=== PATIENT | female | born 1985 | race Caucasian/White ===

== ENCOUNTER 2016-07-13 07:20 | Emergency (ER) | payer SELFPAY ==
--- NOTE | ~2016-07-13 | ER ---
PATIENT'S NAME: JARVIS PAUL [facility] AGE: 30 Y [address] ROOM: [place] [address] LOCATION: [facility] ADMIT DATE: 07/13/2016 ER/Outpatient Report DISCHARGE DATE: 07/13/2016 FAMILY PHYSICIAN: Ernesto Henley MD ATTENDING PHYSICIAN: Kishore Malone CHIEF COMPLAINT: Feeling hot, right-sided neck pain, shortness of breath, and congestion. HISTORY OF PRESENT ILLNESS: The patient has had above symptoms for 3-5 days, but they have been getting worse. She stated initially she never had this before, but on repeat questioning, she has had this exact presentation before. She states that she was recently discharged from [facility] a few days ago where she was admitted for some stabilization. She states she has otherwise been doing well. She has taken Tylenol and ibuprofen this morning with no significant improvement. She also asked for a work note. PAST MEDICAL HISTORY: Documented on the record and reviewed by me. SOCIAL HISTORY: Documented on the record and reviewed by me. MEDICATIONS: Documented on the record and reviewed by me. ALLERGIES: DOCUMENTED ON THE RECORD AND REVIEWED BY ME. REVIEW OF SYSTEMS: All systems reviewed and negative except as noted in the HPI. PHYSICAL EXAMINATION: VITAL SIGNS: Blood pressure 137/80, pulse is 69, respiratory rate is 16, temperature 99.4, SpO2 is 97% on room air. Pain is rated 7/10. GENERAL: An age appropriate female, obviously does not feel well, sitting upright in the exam chair, in no obvious distress or pain. HEENT: Normocephalic, atraumatic. The eyes are PERRL. Sclerae noninjected conjunctivae are pink. The nasal mucosa is edematous with purulent discharge. Sinuses are mildly tender. The oropharynx is erythematous with no exudates. No uvula deviation. Tonsils are symmetric. Neck is notable for tenderness to palpation along the right lateral aspects near the skull base and inferiorly. The TMs are bulging bilateral with no purulence or air-fluid levels. No erythema appreciated bilateral. There is no tenderness at the mastoid process PATIENT'S NAME: JARVIS PAUL [facility] AGE: 30 Y [address] ROOM: [place] [address] LOCATION: [facility] ADMIT DATE: 07/13/2016 ER/Outpatient Report DISCHARGE DATE: 07/13/2016 FAMILY PHYSICIAN: Ernesto Henley MD ATTENDING PHYSICIAN: Kishore Malone bilateral. BACK: Nontender to palpation. CHEST: Even and unlabored respirations. LUNGS: Clear to auscultation bilateral with no rhonchi, wheezes, or rales. HEART: Regular rate and rhythm. ABDOMEN: Obese, but nontender. EXTREMITIES: Warm and well perfused. SKIN: Warm, dry, and intact without rashes. LABS AND X-RAYS: Chest x-ray, negative and within normal limits per my read. Labs; procalcitonin below threshold. Influenza A and B are negative. Rapid strep is negative. CMS is unremarkable. CRP is 2.5. WBCs are 11.3, hemoglobin 13.5, platelets of 320. IMPRESSION: Likely viral syndrome versus deep neck space infection. EMERGENCY DEPARTMENT COURSE: The patient was evaluated as above. Her presentation is most concerning for viral upper respiratory syndrome; however, given the amount of pain and tenderness that she is having on the side of her neck, I was concerned about a possible deep space abscess with a CRP that is elevated and mildly elevated white count. There are no external signs of same and there is no deviation of the trachea, no fluctuance, and no overlying erythema. There is also no tonsillar prominence. I do not think the patient has a peritonsillar abscess. I recommended CT of the neck with contrast and the patient declined. She stated she wanted to go home and sleep and have a work note. I explained I was concerned about the infection and she further declined stating she would return if worse. I think that it is likely safe; however, there is a small element of concern. All questions were answered. The patient was given a work note and discharged in good condition to follow up with her primary care providers as needed. Return immediately if worse. Ordi-kyw-lxavzxy anti- inflammatories as needed. MD CARLY TOBIN/benigno /[id number] d: 07/13/16 1257 t: 07/27/16 0804, OUTPATIENT REPORT
[~2016-07-13 07:20] MED LIST: ADVIL200 MG; CYMBALTA20 MG PO; DESYREL100 MG PO; EFFEXOR XR150 MG PO; IBUPROFEN800 MG PO; KEFLEX500 MG PO; MULTIVITAMINS1 EAC1 PO; NEURONTIN100 MG PO; NICOTINE PATCH1 EAC1 TOP; SPRINTEC 28 DA1 EACH PO; STRATTERA18 MG PO; STRATTERA40 MG PO; TRAMADOL HCL50 MG; ULTRAM50 MG PO; VITAMIN D-32000 UNI1 PO; WELLBUTRIN XL150 M1 PO; ZOLOFT100 MG PO; ZOLOFT50 MG; ZYPREXA10 MG PO; ZYPREXA2.5 MG PO; [UNRECOGNIZED DRUG - MIXTURE] PO
[2016-07-13 08:03] LABS: BASOPHIL # 0.1 K/uL (0.0-0.2); BASOPHIL % 0.5 %; EOSINOPHIL # 0.2 K/uL (0.0-0.5); EOSINOPHIL % 1.3 %; HEMATOCRIT 39.8 % (33.0-46.0); HEMOGLOBIN 13.5 g/dL (11.0-15.0); IMMATURE GRANULOCYTE % 0.3 %; LYMPHOCYTE # 1.3 K/uL (0.8-4.0); LYMPHOCYTE % 11.4 %; MCH 30.6 pg (27.0-34.0); MCHC 33.9 gm/dL (32.0-36.5); MCV 90.2 fl (83.0-98.0); MONOCYTE # 0.8 K/uL (0.0-1.0); MONOCYTE % 6.9 %; MPV 9.3 fl (9.4-12.4); NEUTROPHIL % 79.6 %; NRBC % 0 /100WBC (0-0.00); PLATELET COUNT 320 K/uL (150-450); RBC 4.41 M/uL (3.50-5.50); RDW-CV 13.2 % (11.9-14.6); WBC 11.3 K/uL (4.0-11.0)
[2016-07-13 08:30] LABS: ALBUMIN 3.7 gm/dL (3.5-5.0); ALK PHOS 88 IU/L (33-138); ALT 26 IU/L (12-78); ANION GAP 12.1 (10.0-19.0); AST 17 IU/L (10-40); BLOOD UREA NITROGEN 11 mg/dL (6-24); CALCIUM 8.4 mg/dL (8.5-10.5); CHLORIDE 106 mMol/L (96-110); CO2 26 mMol/L (22-32); CREATININE 0.6 mg/dL (0.5-1.1); ESTIMATED GFR (MDRD EQUATION) > 60; POTASSIUM 4.1 mMol/L (3.7-5.1); SODIUM 140 mMol/L (135-145); TOTAL PROTEIN 7.3 g/dL (6.0-8.4)
[2016-07-13 08:31] LABS: TOTAL BILIRUBIN 0.3 mg/dL (0.0-1.5)
[2016-08-12] MEDS ORDERED: WELLBUTRIN XL150 M1 PO (09:57)
[2016-08-12] MEDS ORDERED: NICODERM / HABIT7 MG TOP (10:04)
[2016-11-26] MEDS ORDERED: ZOLOFT50 MG PO (10:39)
[2016-12-20] MEDS ORDERED: WELLBUTRIN XL150 M1 PO (09:49)
[2016-12-20] MEDS ORDERED: NICOTINE PATCH1 EAC1 TOP (09:50)
[2016-12-20] MEDS ORDERED: RISPERDAL0.25 MG PO (09:51)
[2016-12-20] MEDS ORDERED: RISPERDAL0.5 MG PO (09:53)
== END 2016-07-13 08:45 | disposition disaster alternative care site (69) ==
LOC: GMED 07:20
PROVIDERS: Emergency Medicine
DX: M54.2 Cervicalgia (principal); R06.02 Shortness of breath; Z79.899 Other long term (current) drug therapy

== ENCOUNTER 2016-08-05 06:32 | Emergency (ER) | payer SELFPAY ==
--- NOTE | ~2016-08-05 | ER ---
PATIENT'S NAME: JARVIS PAUL [facility] AGE: 30 Y [address] ROOM: [place] [address] LOCATION: [facility] ADMIT DATE: 08/05/2016 ER/Outpatient Report DISCHARGE DATE: 08/05/2016 FAMILY PHYSICIAN: Ernesto Henley MD ATTENDING PHYSICIAN: Kishore Malone CHIEF COMPLAINT: Amphetamine use and suicidal ideation. HISTORY OF PRESENT ILLNESS: The patient arrives by ambulance. She has been bingeing on methamphetamines for the last several days. She also reports taking oxycodone or hydrocodone. She denies any other drug use. She is without other complaints other than general malaise. She is otherwise doing okay. She has no other specific complaints, but states she has not eaten in several days. PAST MEDICAL HISTORY: Documented on the record and reviewed by me. SOCIAL HISTORY: Documented on the record and reviewed by me. MEDICATIONS: Documented on the record and reviewed by me. ALLERGIES: DOCUMENTED ON THE RECORD AND REVIEWED BY ME. REVIEW OF SYSTEMS: All systems reviewed and negative except as noted in the HPI. PHYSICAL EXAMINATION: VITAL SIGNS: On arrival; blood pressure 195/78, pulse 114, respiratory rate is 28, temperature 98.5, and SpO2 is 98% on room air. No outward signs of pain. GENERAL: Age-appropriate female, clearly intoxicated, lying on exam table with no acute distress, no obvious pain. NEUROLOGIC: The patient is easily arousable. She is minimally conversant and somewhat aggressive with her language, but not physically aggressive. She does not answer questions appropriately, but she does have clear speech. She is able to follow commands in all extremities. No obvious abnormalities otherwise. HEENT: Normocephalic and atraumatic. Eyes are PERRL. Oropharynx is clear. NECK: Supple. Trachea is midline. CHEST: Heart is tachycardic with no murmurs. Lungs are clear to auscultation PATIENT'S NAME: JARVIS PAUL [facility] AGE: 30 Y [address] ROOM: [place], [place] [address] LOCATION: [facility] ADMIT DATE: 08/05/2016 ER/Outpatient Report DISCHARGE DATE: 08/05/2016 FAMILY PHYSICIAN: Ernesto Henley MD ATTENDING PHYSICIAN: Kira,Kishore bilaterally with no rhonchi, wheezes, or rales. ABDOMEN: Soft, nontender, and nondistended. No rebound or guarding. BACK: Nontender to palpation throughout. No CVA tenderness. EXTREMITIES: Warm and well perfused. SKIN: Warm, dry, and intact with some slight erythema diffusely. No clear rash. LABS AND X-RAYS: No imaging was obtained. No outward signs of trauma. EKG showed sinus tachycardia, significant artifact, no other obvious abnormalities otherwise. CBC is unremarkable. CMS is notable for a potassium of 2.8, otherwise grossly unremarkable. GFR is greater than 60. Alcohol, acetaminophen, salicylate, and are all below detectable threshold. Urinalysis consistent with amphetamine and cannabinoid use. IMPRESSION: 1. Methamphetamine use. 2. Suicidal ideation. 3. Hypokalemia. EMERGENCY DEPARTMENT COURSE: The patient was given 2 L of NS with 40 mEq of oral potassium. She continued to improve. Tachycardia improved to the high 90s. She did have some bigeminy, which improved markedly throughout her stay. She stated that she was having thoughts of harming herself and would definitely harm herself if she left the ER to a not safe environment. [facility] were contacted to come and evaluate her and she will be taken and accepted to their facility, Dr. Millan for further evaluation and treatment at this time. All questions were answered and the patient was taken by ambulance to their facility after being discharged from here for further evaluation and treatment of this suicidal ideation in the setting of substance abuse. MD CARLY TOBIN/benigno /[id number] d: 08/05/162299 t: 08/16/16626, OUTPATIENT REPORT
[2016-08-05 07:55] LABS: BASOPHIL # 0.1 K/uL (0.0-0.2); BASOPHIL % 0.7 %; EOSINOPHIL # 0.1 K/uL (0.0-0.5); EOSINOPHIL % 1.5 %; HEMATOCRIT 42.1 % (33.0-46.0); HEMOGLOBIN 14.2 g/dL (11.0-15.0); IMMATURE GRANULOCYTE % 0.4 %; MCH 30.8 pg (27.0-34.0); MCHC 33.7 gm/dL (32.0-36.5); MCV 91.3 fl (83.0-98.0); MONOCYTE # 0.6 K/uL (0.0-1.0); MONOCYTE % 6.7 %; MPV 9.1 fl (9.4-12.4); NEUTROPHIL # (ANC) 5.6 K/uL (1.8-7.8); NEUTROPHIL % 66.7 %; NRBC % 0 /100WBC (0-0.00); PLATELET COUNT 403 K/uL (150-450); RBC 4.61 M/uL (3.50-5.50); RDW-CV 13.3 % (11.9-14.6); WBC 8.4 K/uL (4.0-11.0)
[2016-08-05 08:16] LABS: ALBUMIN 3.5 gm/dL (3.5-5.0); ALK PHOS 81 IU/L (33-138); ALT 21 IU/L (12-78); AST 16 IU/L (10-40); BLOOD UREA NITROGEN 10 mg/dL (6-24); CHLORIDE 105 mMol/L (96-110); CO2 24 mMol/L (22-32); CREATININE 0.6 mg/dL (0.5-1.1); ESTIMATED GFR (MDRD EQUATION) > 60; SODIUM 139 mMol/L (135-145); TOTAL PROTEIN 7.5 g/dL (6.0-8.4)
[2016-08-05 08:26] LABS: ANION GAP 12.8 (10.0-19.0); POTASSIUM 2.8 mMol/L (3.7-5.1); TOTAL BILIRUBIN 0.5 mg/dL (0.0-1.5)
[2016-08-05 09:11] LABS: BARBITURATE NEGATIVE (NEGATIVE); COCAINE NEGATIVE (NEGATIVE); OPIATES NEGATIVE (NEGATIVE)
[2016-08-05 09:12] LABS: AMPHETAMINE POSITIVE (NEGATIVE)
[2016-08-05] MEDS ORDERED: POTASSIUM CHLO10 ME1 PO (13:32)
[2016-08-12] MEDS ORDERED: WELLBUTRIN XL150 M1 PO (09:57)
[2016-08-12] MEDS ORDERED: NICODERM / HABIT7 MG TOP (10:04)
[2016-11-26] MEDS ORDERED: ZOLOFT50 MG PO (10:39)
[2016-12-20] MEDS ORDERED: WELLBUTRIN XL150 M1 PO (09:49)
[2016-12-20] MEDS ORDERED: NICOTINE PATCH1 EAC1 TOP (09:50)
[2016-12-20] MEDS ORDERED: RISPERDAL0.25 MG PO (09:51)
[2016-12-20] MEDS ORDERED: RISPERDAL0.5 MG PO (09:53)
== END 2016-08-05 11:39 | disposition disaster alternative care site (69) ==
LOC: GMED 06:32
PROVIDERS: Emergency Medicine
DX: F15.90 Other stimulant use, unspecified, uncomplicated (principal); R45.851 Suicidal ideations; E87.6 Hypokalemia
CPT/HCPCS: G0480; J7030

== ENCOUNTER 2016-08-17 02:38 | Emergency (ER) | payer SELFPAY ==
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
[~2016-08-17 02:38] MED LIST changes: +NICODERM / HABIT7 MG TOP; +POTASSIUM CHLO10 ME1 PO
[2016-08-17 03:35] LABS: BASOPHIL # 0.1 K/uL (0.0-0.2); BASOPHIL % 0.5 %; EOSINOPHIL # 0.1 K/uL (0.0-0.5); EOSINOPHIL % 1.4 %; HEMATOCRIT 41.9 % (33.0-46.0); HEMOGLOBIN 13.8 g/dL (11.0-15.0); IMMATURE GRANULOCYTE % 0.2 %; LYMPHOCYTE # 2.5 K/uL (0.8-4.0); MCH 30.3 pg (27.0-34.0); MCHC 32.9 gm/dL (32.0-36.5); MCV 92.1 fl (83.0-98.0); MONOCYTE # 0.6 K/uL (0.0-1.0); MONOCYTE % 6.6 %; MPV 9.4 fl (9.4-12.4); NEUTROPHIL # (ANC) 6.2 K/uL (1.8-7.8); NEUTROPHIL % 65.3 %; NRBC % 0 /100WBC (0-0.00); PLATELET COUNT 408 K/uL (150-450); RBC 4.55 M/uL (3.50-5.50); RDW-CV 12.8 % (11.9-14.6); WBC 9.5 K/uL (4.0-11.0)
[2016-08-17 03:42] LABS: BLOOD URINE 50 /UL (NEGATIVE); COLOR URINE YELLOW (YELLOW); GLUCOSE URINE NEGATIVE (NEGATIVE); KETONE URINE 15 mg/dL (NEGATIVE); LEUKOCYTES URINE 100 /UL (NEGATIVE); NITRITE URINE NEGATIVE (NEGATIVE); PROTEIN URINE 30 mg/dL (NEGATIVE); TURBIDITY URINE 1+ (CLEAR); UROBILINOGEN URINE 1 mg/dL (NORMAL)
[2016-08-17 03:46] LABS: ALBUMIN 3.8 gm/dL (3.5-5.0); ALK PHOS 76 IU/L (33-138); ALT 20 IU/L (12-78); ANION GAP 15.5 (10.0-19.0); AST 17 IU/L (10-40); BLOOD UREA NITROGEN 13 mg/dL (6-24); CALCIUM 8.3 mg/dL (8.5-10.5); CHLORIDE 105 mMol/L (96-110); CO2 24 mMol/L (22-32); CREATININE 0.8 mg/dL (0.5-1.1); ESTIMATED GFR (MDRD EQUATION) > 60; POTASSIUM 3.5 mMol/L (3.7-5.1); SODIUM 141 mMol/L (135-145); TOTAL BILIRUBIN 0.4 mg/dL (0.0-1.5); TOTAL PROTEIN 7.6 g/dL (6.0-8.4)
[2016-08-17 03:54] LABS: INR - (THERAPEUTIC) 0.92 (0.92-1.07); PROTIME 9.7 SECONDS (9.8-11.4); PTT 26 SECONDS (25-32)
[2016-08-17 03:55] LABS: AMORPHOUS URINE 2+ (NEGATIVE); BACTERIA URINE RARE (NEGATIVE)
[2016-08-17 03:56] LABS: CPK 130 IU/L (21-215)
[2016-08-17 04:05] LABS: BARBITURATE NEGATIVE (NEGATIVE); COCAINE NEGATIVE (NEGATIVE); OPIATES NEGATIVE (NEGATIVE)
[2016-08-17 04:07] LABS: AMPHETAMINE POSITIVE (NEGATIVE)
[2016-11-26] MEDS ORDERED: ZOLOFT50 MG PO (10:39)
[2016-12-20] MEDS ORDERED: WELLBUTRIN XL150 M1 PO (09:49)
[2016-12-20] MEDS ORDERED: NICOTINE PATCH1 EAC1 TOP (09:50)
[2016-12-20] MEDS ORDERED: RISPERDAL0.25 MG PO (09:51)
[2016-12-20] MEDS ORDERED: RISPERDAL0.5 MG PO (09:53)
== END 2016-08-17 04:32 | disposition disaster alternative care site (69) ==
LOC: GMED 02:38
PROVIDERS: Emergency Medicine
DX: F15.10 Other stimulant abuse, uncomplicated (principal); Z04.41 Encounter for examination and observation following alleged adult rape; R45.851 Suicidal ideations; F19.10 Other psychoactive substance abuse, uncomplicated; M54.9 Dorsalgia, unspecified; M54.2 Cervicalgia; F17.210 Nicotine dependence, cigarettes, uncomplicated; Z90.49 Acquired absence of other specified parts of digestive tract
CPT/HCPCS: G0480

== ENCOUNTER 2016-11-21 17:52 | Inpatient (IN) | payer SELFPAY ==
[~2016-11-21] VITALS: Ht 162.6 cm; Wt 124.5 kg
--- NOTE | ~2016-11-21 | DS ---
PATIENT'S NAME: JARVIS PAUL [facility] AGE: 31 Y [address] ROOM: [id number] [place], [place] [address] LOCATION: [facility] ADMIT DATE: 11/21/2016 Discharge Summary DISCHARGE DATE: 11/23/2016 FAMILY PHYSICIAN: Physician, Unknown ATTENDING PHYSICIAN: Pedro Canales FINAL DIAGNOSES: 1. Polysubstance overdose. 2. Major depression with suicidal ideation. 3. Morbid obesity. 4. Allergic rhinitis. 5. Tobaccoism. CONSULTATIONS: None. HOSPITAL COURSE: Please see details of admission H and P by Dr. Canales. Briefly, the patient was admitted with medication overdose. She had taken gabapentin, smoked marijuana, snorted meth, and took OxyContin today. She initially presented to [facility], but then was transferred to [facility] for medical clearance. After evaluating the patient, it was felt that the patient should be admitted for treatment as she could have hepatic implications of her overdose medication. Dr. Canales did call [facility] and outlined criteria for observation and treatment. Serial EKGs were monitored for QRS prolongation. She was placed on suicide precautions. Lovenox was utilized for DVT prophylaxis. The patient did actually get Narcan twice for her level of consciousness. I did do a head CT, which was negative. Serum confirmed the patient was not . Upon evaluation on the , she was quite congested. CT scan did show evidence of sinusitis. Otherwise, the patient was angry and was not very conversational. She did not want to get out of bed. Later in the afternoon, she was quite sleepy. Laboratory studies continued to show decline of her liver functions. On the , she was awake in bed and felt suitable to transfer to [facility] for further evaluation and treatment. DIAGNOSTIC STUDIES: CT of the head without contrast shows no acute intracranial pathology. No skull fractures. She does have mucosal thickening in the right maxillary sinus reflecting sinusitis. Ultrasound of the abdomen shows mild prominence of common bile duct with no intraductal filling defects, surgically absent gallbladder, question of nonobstructing right renal stone, and borderline enlarged spleen up to 13 cm. LABORATORY DATA: Lactate on the was 1.1. On admission, sodium was 140, potassium of 3.3, chloride 106, bicarb 27, glucose 115, creatinine 0.6, BUN 8, AST was 222, ALT was 154. Alcohol was negative, acetaminophen was negative, and salicylate level was negative. Quantitative hCG was less than 1. Prior PATIENT'S NAME: JARVIS PAUL [facility] AGE: 31 Y [address] ROOM: [id number] [place], [place] [address] LOCATION: [facility] ADMIT DATE: 11/21/2016 Discharge Summary DISCHARGE DATE: 11/23/2016 FAMILY PHYSICIAN: Physician, Unknown ATTENDING PHYSICIAN: Pedro Canales to discharge, sodium was 141, potassium 3.8, chloride 110, bicarb 24, glucose 90, BUN 8, creatinine 0.5, AST 34, ALT 96. Urine drug screen was positive for amphetamines, benzodiazepine, opiates, and THC. DISCHARGE INSTRUCTIONS: The patient is transferred to [facility]. Diet is as tolerated. Activity is as tolerated. DISCHARGE MEDICATIONS: Include: 1. Flonase 2 sprays to each nostril at bedtime. 2. Mucinex 1200 mg twice daily. 3. Protonix 40 mg daily. 4. [place] nasal spray, one spray to each nostril as needed. 5. Trazodone 100 mg at bedtime. We do appreciate participating in this patient's care and thank you very much for the ability to serve her while hospitalized at [facility]. Time spent coordinating details of discharge was less than 30 minutes which was spent coordinating with care management, completion of medication reconciliation, and education to the patient and family on the above-mentioned diagnoses. OMAYRA HOANG FOR NIMA MEDRANO MD BRISA/modl /[id number] d: 11/24/16 0113 t: 12/08/16 1105, DISCHARGE SUMMARY
--- NOTE | ~2016-11-21 | HP ---
PATIENT'S NAME: JARVIS PAUL [facility] AGE: 31 Y [address] ROOM: [address] [address] LOCATION: GPCU ADMIT DATE: 11/21/2016 History & Physical DISCHARGE DATE: FAMILY PHYSICIAN: PHYSICIAN, UNKNOWN ATTENDING PHYSICIAN: LYNN JORGE DATE OF SERVICE: CHIEF COMPLAINT: Suicide attempt with multiple drug overdose. HISTORY OF PRESENT ILLNESS: This is a 31-year-old female with a longstanding history of depression and polysubstance abuse, who today ingested unknown amount of multiple medication including gabapentin, Wellbutrin, Percocet, oxycodone, tramadol, Aleve, marijuana, and also snorted methamphetamine. She did this in attempt to kill herself. She would not tell me what time she ingested those medications but she told me it was sometime in early afternoon. She did mention that she probably took a 16 tablets of gabapentin of 100 mg, but she does not know the dosing or how many tablets she took of the other medications. The patient went voluntarily to [facility] for suicide attempt and in return the patient was referred here for medical care first. Her only complaint right now is the right upper quadrant abdominal pain which is mild about 2/10 intensity and also nausea and vomiting. She states she vomited about two or three times today in early afternoon after she took all those medications. She denies any other symptoms. In the emergency room, I already contacted the Poison Control and the plan will be to admit the patient. Check a Tylenol, aspirin, and liver function tests right now, which is 4 hours after she got here in the ED and then do one more time in 12 hours. If the ALT is more than 200, we will with start her N-acetylcysteine protocol. Further plan refer to the assessment and plan for details. REVIEW OF SYSTEMS: As mentioned in history of present illness. All other systems were reviewed and were negative except those mentioned in history of present illness. PAST MEDICAL HISTORY: 1. Chronic lower back pain. 2. Polysubstance abuse. 3. Depression. 4. Fibromyalgia. ALLERGIES: NONE. PATIENT'S NAME: JARVIS PAUL [facility] AGE: 31 Y [address] ROOM: [address] [address] LOCATION: GPCU ADMIT DATE: 11/21/2016 History & Physical DISCHARGE DATE: FAMILY PHYSICIAN: PHYSICIAN, UNKNOWN ATTENDING PHYSICIAN: LYNN JORGE LANE MEDICATIONS: Currently has been reconciled. SOCIAL HISTORY: The patient smokes about 1 pack per day since she was 19 years old. Denies any alcohol and admits to using snorting methamphetamine and smoke marijuana on and off. FAMILY HISTORY: The patient does not remember anything about her parents. PAST SURGICAL HISTORY: Cholecystectomy and twice in the past. PHYSICAL EXAMINATION: VITAL SIGNS: At time of my evaluation, temperature 99, respiration 20, heart rate 122, blood pressure 138/86, and saturation 94% on room air. GENERAL APPEARANCE: The patient is alert and awake and oriented x3, in no acute distress. HEENT: Pupils equally round and reactive to light. Extraocular muscles intact. Anicteric sclerae. Nasal turbinates are normal bilaterally. NECK: No JVD. CARDIOVASCULAR: Regular rate and rhythm. Normal S1, S2. No murmur. No rubs. No gallops. RESPIRATORY: Clear. No rales. No rhonchi. No wheezing. No crackles. ABDOMEN: Obese, soft, mildly tender to palpation in the right upper quadrant, no abdominal rigidity. No mass. Bowel sounds present. No ascites. EXTREMITIES: No edema in upper or lower extremities. SKIN: No ulcer. No rash. No cyanosis. NEUROLOGICAL: Grossly nonfocal. LABORATORY DATA: White blood cell 7.7, hemoglobin 12.1, hematocrit 36.3, MCV 92.4, platelets 368. Glucose 115, BUN 8, creatinine 0.6, sodium 140, potassium 3.3, chloride 106, CO2 of 27, calcium 8.2, total protein 6.9, albumin 3.4, AST 222, ALT 154, alkaline phosphatase 137, total bilirubin 0.6, anion gap 10.3. GFR more than 90. Alcohol level is nontoxic. Aspirin and Tylenol level nontoxic. Urine drug screen positive for amphetamine, opiates, marijuana, and benzodiazepine. Urinalysis pending. IMAGING STUDIES: EKG on admission shows sinus tachycardia heart rate of 113, NJ of 172, QRS of 85, QTc of 395 milliseconds. No acute ischemic findings. PATIENT'S NAME: JARVIS PAUL [facility] AGE: 31 Y [address] ROOM: [id number] [place], [place] [address] [facility] ADMIT DATE: 11/21/2016 History & Physical DISCHARGE DATE: FAMILY PHYSICIAN: PHYSICIAN, UNKNOWN ATTENDING PHYSICIAN: LYNN JORGE ASSESSMENT AND PLAN: 1. Regarding her suicidal attempt with a polysubstance overdose. Suicidal precaution. One-in-one sitter in the room at all times. Psychiatry consult in the morning. I already spoke to the Poison Control, the plan will be regarding her transaminitis. There is a possibility she also ingested Tylenol just that she has not been truthful. Therefore, we will be checking liver function tests right now and if the ALT is more than 200, Poison Control recommend starting N-acetylcysteine for the Tylenol overdose. In addition, I will be checking another liver function tests and Tylenol and aspirin levels as well in 12 hours and again follow up with ALT, if it is more than 200, I will require N-acetylcysteine protocol. This is for the concern of the Tylenol intoxication. 2. Regarding her Wellbutrin overdose, we will be checking EKG to monitor QRS to make sure it is less than 120. The initial one is fine. I will be checking again at 1 a.m., 4 a.m., and 8 a.m. At the same time, the patient will be on IV fluids for hydration with normal saline. 3. Regarding her gabapentin, we will be conservative with supportive care with IV fluids. 4. Regarding her opioid overdose, watch her closely. I will be putting ET CO2 monitoring and also IV fluids for hydration. If she becomes drowsy or decrease in respiratory rate, we will be using Narcan. 5. Regarding her methamphetamine overdose, continue with telemetry monitoring and is on supportive care. 6. Regarding her Aleve, I give her Protonix. 7. In addition, regarding her right upper quadrant abdominal pain, nausea, and vomiting, we will give IV Zofran for nausea and get a complete abdominal ultrasound in the morning to look at the liver morphology. Further plan will depend on clinical course. 8. Regarding her hypokalemia: Replace with p.o. potassium chloride. 9. Regarding her depression: For now of course, we will hold all the home medication and also consult Psychiatry in the morning. 10. She is a full code. Time spent in care on the day of admission 50 minutes where 30 minutes was spent on counseling and also which includes going over the plan of care with the patient and addressing all her questions to her satisfaction. This time also includes a physical examination and also by calling the Poison Control for the plan of care. The remainder of the time was spent on interview and also on chart review. Further plan will depend on clinical course. LYNN JORGE MD CC/mónical PATIENT'S NAME: JARVIS PAUL [facility] AGE: 31 Y [address] ROOM: [place] [address] [facility] ADMIT DATE: 11/21/2016 History & Physical DISCHARGE DATE: FAMILY PHYSICIAN: PHYSICIAN, UNKNOWN ATTENDING PHYSICIAN: LYNN JORGE /[id number] D: [id number] T: HISTORY & PHYSICAL
--- NOTE | ~2016-11-21 | ER ---
PATIENT'S NAME: JARVIS PAUL [facility] AGE: 31 Y [address] ROOM: [address] [address] LOCATION: GPCU ADMIT DATE: 11/21/2016 ER/Outpatient Report DISCHARGE DATE: FAMILY PHYSICIAN: PHYSICIAN, UNKNOWN ATTENDING PHYSICIAN: LYNN JORGE Time of Arrival: 1752 hours. Time of Exam: 1752 hours. CHIEF COMPLAINT: Overdose. HISTORY OF PRESENT ILLNESS: The patient presents to the ER per EMS and [place] [employer]. The patient was picked up at [facility]. landcare officer reports that the patient took sixteen 100 mg gabapentin tabs. Has smoked marijuana shot up with meth and took OxyContin today. The patient states she just wants it all to end, but she is uncooperative and refuses to answer other questions. ALLERGIES: SHE HAS NO KNOWN ALLERGIES. CURRENT MEDICATIONS: Are from previous admission. PAST MEDICAL HISTORY: Suicidal ideation, anxiety, depression. SOCIAL HISTORY: Unable to obtain, as the patient will not answer questions. REVIEW OF SYSTEMS: Unable to obtain, the patient will not answer questions. PHYSICAL EXAMINATION: VITAL SIGNS: Weight 123.6 kg. Pulse of 122, respirations 20, temperature of 99 tympanic, O2 saturation was 94% on room air. GENERAL: She is awake, alert, and oriented x4, but refuses to answer questions and says just leave me alone. States that she just wants it all to end. She is unkept. She is tearful and crying at times. Frequently swearing to leave her alone. LUNGS: Sounds were clear throughout. HEART: Regular rate and rhythm. Tachycardic. ABDOMEN: Soft, nondistended. Bowel sounds are present. PATIENT'S NAME: JARVIS PAUL [facility] AGE: 31 Y [address] ROOM: [address] [address] LOCATION: GPCU ADMIT DATE: 11/21/2016 ER/Outpatient Report DISCHARGE DATE: FAMILY PHYSICIAN: PHYSICIAN, UNKNOWN ATTENDING PHYSICIAN: LYNN JORGE Attempted to do lab and EKG upon arrival, she refused to cooperate. She was monitored, did put O2 saturation on her toe when she did leave it on. She did fall asleep and at that time, her O2 sats did drop down to the 80s. We were able to arouse her easily with verbal stimuli. Did put her on some oxygen. She did allow us to start an IV. We fredy the blood. She did allow us to do an EKG that showed sinus tach. CBC is within normal limits. Chem panel shows a sodium of 140, potassium 3.3, with a creatinine of 0.6. Her AST is elevated at 222 and ALT is 154, total bilirubin is 0.6. Alcohol is zero. Acetaminophen is zero. Salicylate is zero. Serum is negative. TSH was 2.6. The patient did have to urinate, commode was used. Drug screen was obtained from the urine, positive for amphetamines, benzodiazepines, opiates, and cannabinoids. Her vital signs remained stable. Respirations are even and nonlabored. Dr. Durbin, the hospitalist, was contacted. We did contact Poison Control. Initially, Poison Control wanted the patient to get Mucomyst, but they did call back and state that since her ALT is not greater than 200, they would hold off on the Mucomyst. Dr. Jorge did come down and examined the patient. She will be admitted to the hospital service. IMPRESSION: 1. Overdose. 2. Suicidal ideation. PLAN: The patient to be admitted per the hospitalist. SHABBIR STRAUSS APRN FOR MD JESSICA VARGAS/benigno /[id number] d: 11/22/16 1349 t: 11/26/16 0712, OUTPATIENT REPORT
[2016-11-21 18:43] LABS: BASOPHIL # 0.1 K/uL (0.0-0.2); BASOPHIL % 0.9 %; EOSINOPHIL # 0.3 K/uL (0.0-0.5); EOSINOPHIL % 3.2 %; HEMATOCRIT 36.3 % (33.0-46.0); HEMOGLOBIN 12.1 g/dL (11.0-15.0); IMMATURE GRANULOCYTE % 0.3 %; LYMPHOCYTE # 2.1 K/uL (0.8-4.0); LYMPHOCYTE % 27.1 %; MCH 30.8 pg (27.0-34.0); MCHC 33.3 gm/dL (32.0-36.5); MCV 92.4 fl (83.0-98.0); MONOCYTE # 0.6 K/uL (0.0-1.0); MONOCYTE % 7.7 %; MPV 9.2 fl (9.4-12.4); NEUTROPHIL # (ANC) 4.7 K/uL (1.8-7.8); NEUTROPHIL % 60.8 %; NRBC % 0 /100WBC (0-0.00); PLATELET COUNT 368 K/uL (150-450); RBC 3.93 M/uL (3.50-5.50); WBC 7.7 K/uL (4.0-11.0)
[2016-11-21 19:03] LABS: ALBUMIN 3.4 gm/dL (3.5-5.0); ALK PHOS 137 IU/L (33-138); ALT 154 IU/L (12-78); ANION GAP 10.3 (10.0-19.0); AST 222 IU/L (10-40); BLOOD UREA NITROGEN 8 mg/dL (6-24); CALCIUM 8.2 mg/dL (8.5-10.5); CHLORIDE 106 mMol/L (96-110); CO2 27 mMol/L (22-32); CREATININE 0.6 mg/dL (0.5-1.1); POTASSIUM 3.3 mMol/L (3.7-5.1); SODIUM 140 mMol/L (135-145); TOTAL PROTEIN 6.9 g/dL (6.0-8.4)
[2016-11-21 19:04] LABS: TOTAL BILIRUBIN 0.6 mg/dL (0.0-1.5)
[2016-11-21 19:13] LABS: COCAINE NEGATIVE (NEGATIVE); OPIATES POSITIVE (NEGATIVE)
[2016-11-21 19:15] LABS: AMPHETAMINE POSITIVE (NEGATIVE); BARBITURATE NEGATIVE (NEGATIVE)
[2016-11-21 23:03] LABS: ALBUMIN 3.2 gm/dL (3.5-5.0); ALK PHOS 142 IU/L (33-138); ALT 173 IU/L (12-78); ANION GAP 9.6 (10.0-19.0); AST 209 IU/L (10-40); BLOOD UREA NITROGEN 8 mg/dL (6-24); CALCIUM 7.8 mg/dL (8.5-10.5); CHLORIDE 108 mMol/L (96-110); CO2 27 mMol/L (22-32); CREATININE 0.5 mg/dL (0.5-1.1); POTASSIUM 3.6 mMol/L (3.7-5.1); SODIUM 141 mMol/L (135-145); TOTAL PROTEIN 6.7 g/dL (6.0-8.4)
[2016-11-21 23:04] LABS: TOTAL BILIRUBIN 0.3 mg/dL (0.0-1.5)
[2016-11-21 23:36] LABS: INR - (THERAPEUTIC) 0.95 (0.92-1.07)
[2016-11-22 00:06] LABS: BLOOD URINE NEGATIVE /UL (NEGATIVE); COLOR URINE YELLOW (YELLOW); GLUCOSE URINE NEGATIVE (NEGATIVE); KETONE URINE 5 mg/dL (NEGATIVE); LEUKOCYTES URINE 100 /UL (NEGATIVE); NITRITE URINE NEGATIVE (NEGATIVE); PROTEIN URINE 30 mg/dL (NEGATIVE); SPEC GRAVITY URINE 1.025 (1.003-1.035); TURBIDITY URINE 4+ (CLEAR); UROBILINOGEN URINE 4 mg/dL (NORMAL)
--- NOTE | 2016-11-22 00:36 | NUR ---
Patient is a 31 y/o female admitted for overdose. Patient took 16 gabapentins, 4 oxycontin and 2 percocet and used meth and marijuana within the last 24 hrs. Has hx of overdose in July. Sucidal thoughts, attempts, depression. 1:1 sitter. No known allergies.
[2016-11-22 00:55] LABS: BACTERIA URINE RARE (NEGATIVE); CRYSTALS URINE URIC ACID (NEGATIVE); RBC URINE NEGATIVE #/HPF (NEGATIVE)
[2016-11-22 03:41] LABS: INR - (THERAPEUTIC) 0.92 (0.92-1.07); PROTIME 9.7 SECONDS (9.8-11.4)
[2016-11-22 03:53] LABS: TOTAL BILIRUBIN 0.3 mg/dL (0.0-1.5); TOTAL PROTEIN 6.4 g/dL (6.0-8.4)
--- NOTE | 2016-11-22 05:03 | NUR ---
Significant Event: Alert, uncooperative when arrived to floor. refused to answer orientation questions. slurry speech. Became drowsy around midnight. Alert to sternal rub. ETCO continuous monitoring, 49-52 CO2. Narcan 0.8mg total given. VSS on RA/1L. SBP 110-130s. HR 70-90s. Head CT in progress. 1:1 sitter, suicide precautions, aspiration precautions. Follow up: Continue to monitor per plan of care.
[2016-11-22 08:00] LABS: HEMATOCRIT 36.8 % (33.0-46.0); HEMOGLOBIN 11.9 g/dL (11.0-15.0); MCH 30.8 pg (27.0-34.0); MCHC 32.3 gm/dL (32.0-36.5); MCV 95.3 fl (83.0-98.0); MPV 9.2 fl (9.4-12.4); RBC 3.86 M/uL (3.50-5.50); RDW-CV 14.4 % (11.9-14.6); WBC 4.6 K/uL (4.0-11.0)
[2016-11-22 08:09] LABS: INR - (THERAPEUTIC) 0.93 (0.92-1.07); PROTIME 9.8 SECONDS (9.8-11.4)
[2016-11-22 08:20] LABS: ALK PHOS 125 IU/L (33-138); ALT 147 IU/L (12-78); AST 97 IU/L (10-40); BLOOD UREA NITROGEN 9 mg/dL (6-24); CHLORIDE 112 mMol/L (96-110); CO2 28 mMol/L (22-32); CREATININE 0.5 mg/dL (0.5-1.1); POTASSIUM 4.5 mMol/L (3.7-5.1); TOTAL BILIRUBIN 0.3 mg/dL (0.0-1.5); TOTAL PROTEIN 6.4 g/dL (6.0-8.4)
[2016-11-22 08:35] LABS: ANION GAP 10.5 (10.0-19.0); SODIUM 146 mMol/L (135-145)
--- NOTE | 2016-11-22 09:09 | NUR ---
PT SCREENED D/T (+) MST. PT W/ GOOD APPETITE. BMI IN MORBIDLY OBESE RANGE. NOT AT RISK. WILL ASSIST NEEDED.
--- NOTE | 2016-11-22 11:44 | NUR ---
[phone] Call over to [facility] Access Center, [phone], talked with Claire. Claire tells me that based on Gasper' admitting diagnosis, she will be a direct admission to [facility] once she is medically able to transfer over to them. I let her know that it would most likely be on Tuesday. Claire was fine with this. Since Bill meets direct admission criteria, [facility] counselor/psych., will not come over here and see her. I shared this with TY Vale who voices understanding to it. Also left a note on the chart as well for MD to see. Bill was sleeping when I went past her room and TY Vale tells me that she has been a bit grumpy today and not very willing to talk with people so maybe try talking with her later this afternoon. Let Kavin know I would do this. I reviewed Gasper' chart, it appears that she lives here in [place], no insurance is listed for her, no EPC paperwork is on her chart at this point. CM to stop by and see Bill later today or tomorrow morning to talk with her about dismissal plans. Plan [facility] upon dismissal. CM to continue to follow and assist.
--- NOTE | 2016-11-22 17:39 | NUR ---
Significant Event: VSS AND RA. ETCO2'S 40 RANGE. VERY DROWSY ALL AM AND INTO MID AFTERNOON, AWOKE TO VERBAL STIMULI ONLY. AT AROUND 1530 IS FULLY AWAKE AND WATCHES TV AND EATS MEAL. VOIDS WITH 500 MLS UOP. 1:1 SITTER. Follow up: TO [facility] ON D/C
--- NOTE | 2016-11-23 05:00 | NUR ---
A/O. VSS. 1:1 SITTER. NS AT 15OML/HR. DENIES PAIN. POSSIBLE DISMISSAL TODAY.
[2016-11-23 05:36] LABS: BASOPHIL # 0.1 K/uL (0.0-0.2); BASOPHIL % 0.9 %; EOSINOPHIL # 0.3 K/uL (0.0-0.5); EOSINOPHIL % 4.9 %; HEMATOCRIT 34.9 % (33.0-46.0); HEMOGLOBIN 10.9 g/dL (11.0-15.0); IMMATURE GRANULOCYTE % 0.2 %; LYMPHOCYTE % 35.1 %; MCH 29.6 pg (27.0-34.0); MCHC 31.2 gm/dL (32.0-36.5); MCV 94.8 fl (83.0-98.0); MONOCYTE # 0.3 K/uL (0.0-1.0); MONOCYTE % 5.2 %; MPV 9.2 fl (9.4-12.4); NEUTROPHIL % 53.7 %; NRBC % 0 /100WBC (0-0.00); PLATELET COUNT 289 K/uL (150-450); RBC 3.68 M/uL (3.50-5.50); RDW-CV 14.1 % (11.9-14.6); WBC 5.6 K/uL (4.0-11.0)
[2016-11-23 05:53] LABS: ALBUMIN 2.7 gm/dL (3.5-5.0); ALK PHOS 93 IU/L (33-138); ALT 96 IU/L (12-78); ANION GAP 10.8 (10.0-19.0); AST 34 IU/L (10-40); BLOOD UREA NITROGEN 8 mg/dL (6-24); CALCIUM 7.5 mg/dL (8.5-10.5); CHLORIDE 110 mMol/L (96-110); CO2 24 mMol/L (22-32); CREATININE 0.5 mg/dL (0.5-1.1); MAGNESIUM 2.1 mg/dL (1.8-2.6); POTASSIUM 3.8 mMol/L (3.7-5.1); SODIUM 141 mMol/L (135-145); TOTAL PROTEIN 5.9 g/dL (6.0-8.4)
[2016-11-23 05:54] LABS: TOTAL BILIRUBIN 0.4 mg/dL (0.0-1.5)
--- NOTE | 2016-11-23 12:13 | NUR ---
1000 Call from TY Coe stating that Bill would be cleared to go to [facility] today if they could accept. I phoned over to [facility] Access Center, talked with Melody, asked if they had open female beds for Bill to come to them. Melody states that they do have a bed for her and as soon as orders are completed by doctor and RN to RN has been called in they could accept. I let Melody know that I would plan for RN to RN report to be calld in at 1030 and I would set up ambulance for 1130 to get Bill to them. Melody was fine with this. Updated Dr.Woodruff An and TY Mckenzie to this, they were all in agreement with the plan. Went into Gasper' room, introduced self and CM role to her. She tells me that she lives here in town alone and she wants to return there when she can. I asked if she did her own medication at home, she then responds,"I know I am going to [facility] when I leave here, I really don't want to answer any of your stupid questions or talk with you anymore. Just send me over there, I have been there before, and I will do my time and then go home." I asked if she had any other questions for me, she again reponds with,"No just leave me alone." I asked her if she had any family that she would like me to contact to give them an update on her, but again she tells me "No." I updated Aisha Mejía and TY Mckenzie to my conversation and TY Mckenzie tells me that she has been like that for her as well so she wasn't suprised that she didn't want to visit with me. RN to RN number was given to TY Mckenzie, [phone], to call in report. Report was called, pt was cleared to go to [facility]. Talked with Louisa in EMS, set up transport via ambulance for 1130 today. Packet started, orders printed, ambulance cert form is on the chart. No other questions, needs or concerns. CM to continue to follow and assist. Plan [facility] today at 1130. Voluntary admission.
--- NOTE | 2016-11-23 13:48 | NUR ---
Significant Event: A&O, DROWSY . VSS, AFEBRILE, ROOM AIR. NOT WANTING TO CONVERSE WITH NURSING STAFF, JUST WANTS TO SLEEP. ATE BREAKFAST. REFUSED ALL AM MEDS. TRANSFER TO [facility] AT 1130, EMS TRANSPORT.
[2016-11-26] MEDS ORDERED: ZOLOFT50 MG PO (10:39)
[2016-12-20] MEDS ORDERED: WELLBUTRIN XL150 M1 PO (09:49)
[2016-12-20] MEDS ORDERED: NICOTINE PATCH1 EAC1 TOP (09:50)
[2016-12-20] MEDS ORDERED: RISPERDAL0.25 MG PO (09:51)
[2016-12-20] MEDS ORDERED: RISPERDAL0.5 MG PO (09:53)
== END 2016-11-23 11:30 | DRG 918 ==
LOC: GMED 17:52 → GPCU 21:52
PROVIDERS: Family Medicine; Nurse Practitioner Family; Physician Assistant; ADMIT Internal Medicine
DX: T42.6X2A Poisoning by other antiepileptic and sedative-hypnotic drugs, intentional self-harm, initial encounter (principal); Z68.42 Body mass index [BMI] 45.0-49.9, adult; F32.9 Major depressive disorder, single episode, unspecified; J30.9 Allergic rhinitis, unspecified; E66.01 Morbid (severe) obesity due to excess calories; F17.210 Nicotine dependence, cigarettes, uncomplicated
CPT/HCPCS: C9113; G0480; J1650; J2310; J7030

== ENCOUNTER 2016-12-13 14:22 | Observation (INO) | payer SELFPAY ==
[~2016-12-13] VITALS: Ht 165.1 cm; Wt 118.3 kg
--- NOTE | ~2016-12-13 | ER ---
PATIENT'S NAME: JARVIS PAUL [facility] AGE: 31 Y [address] ROOM: [address] [address] [place] [facility] [place] ADMIT DATE: 12/13/2016 ER/Outpatient Report DISCHARGE DATE: FAMILY PHYSICIAN: PHYSICIAN, UNKNOWN ATTENDING PHYSICIAN: Lisa WALKER TIME SEEN: 1422 hours. HISTORY OF PRESENT ILLNESS: The patient is a 31-year-old female, who presented to [facility] following an overdose of her medication. The patient admits to suicidal thoughts and has previous history of suicide attempts. The patient said that at about 1330 hours she took a handful Wellbutrin. She also states she had used meth earlier in the morning and initially, she said she had taken Effexor, however, she later stated that was not true. The patient has been quite anxious and depressed. She said she has had some auditory hallucinations through the TV. She has also had suicidal thoughts. ALLERGIES: HALDOL. CURRENT MEDICATIONS: Include trazodone and Wellbutrin. PAST MEDICAL HISTORY: Depression and previous suicide attempts. PAST SURGICAL HISTORY: None. SOCIAL HISTORY: History of substance abuse including drugs and alcohol. REVIEW OF SYSTEMS: GENERAL: Denies any recent illness. HEENT: No complaints of any headache, sore throat, or stiff neck. RESPIRATORY: Denies any shortness of breath or cough. CARDIOVASCULAR: No chest pain. No heart palpitations. GASTROINTESTINAL: Calvert nauseated. She was given Zofran by EMS. No recent weight loss. GENITOURINARY: Negative. NEURO/PSYCH: Includes the auditory hallucinations and suicidal thoughts. PHYSICAL EXAMINATION: PATIENT'S NAME: JARVIS PAUL [facility] AGE: 31 Y [address] ROOM: [address] [address] LOCATION: [facility] [place] ADMIT DATE: 12/13/2016 ER/Outpatient Report DISCHARGE DATE: FAMILY PHYSICIAN: PHYSICIAN, UNKNOWN ATTENDING PHYSICIAN: Lisa WALKER VITAL SIGNS: Blood pressure 115/78, temperature is 98.4, respiratory rate 20, pulse 84, and O2 saturations 96%. GENERAL APPEARANCE: White female. She is alert. HEENT: Head: Atraumatic. No exostosis abnormalities noted. Eyes: Pupils appear equal and reactive to light. Sclerae were clear. Nose: Septum midline. Mouth: Oral membranes moist. Teeth good repair. LUNGS: Sounded clear. HEART: Rhythm appeared regular. No murmurs. ABDOMEN: Soft. DIAGNOSTIC DATA: EKG showed a normal sinus rhythm. Her urine drug screen was positive for methamphetamine, salicylate and acetaminophen levels were not elevated. There is CMS, potassium slightly low at 3.4. test was negative. Medical blood alcohol was less than 0.010. CBC: White count 7.0 and hemoglobin 14.6. ASSESSMENT: 1. Suicidal attempt with a medication overdose, Wellbutrin. 2. History of major depression. 3. History of previous suicidal attempts. 4. Drug and alcohol abuse with a recent use of methamphetamines. PLAN: Poison Control was consulted and they recommend observation for 24 hours due to the potential for seizures. The patient will be admitted by the Hospitalist Service. OMAYRA WHITFIELD FOR DO MARY JANE GAVIRIA/benigno /[id number] d: 12/13/16 2331 t: 12/20/16 1216, OUTPATIENT REPORT
--- NOTE | ~2016-12-13 | HP ---
PATIENT'S NAME: JARVIS PAUL [facility] AGE: 31 Y [address] ROOM: [place] [id number] LOCATION: [facility] ADMIT DATE: 12/13/2016 History & Physical DISCHARGE DATE: FAMILY PHYSICIAN: PHYSICIAN, UNKNOWN ATTENDING PHYSICIAN: Salome WALKER DATE OF SERVICE: CHIEF COMPLAINT: Suicide attempt with Wellbutrin overdose. HISTORY OF PRESENT ILLNESS: The patient is a 31-year-old female with a longstanding history of depression, bipolar disorder, polysubstance abuse, and currently taking abusing meth, who presented with unknown amount of Wellbutrin ingestion. The patient reports that lately she has been depressed and has been hearing voices which let her to take what she thinks is close to 30 pills of 150 mg of Wellbutrin today. She called her friend and told her about what she did, and she was brought by her friend to [facility] for evaluation. She was sent from [facility] to our emergency department for evaluation. Poison Control was called, and the patient was deemed to be admitted at least observe for 24 hours before she gets admitted to [facility]. The patient currently reports that she is nauseated. However, denies any fever, chills, productive cough, actual vomit, abdominal pain, diarrhea, or chest pain. PAST MEDICAL HISTORY: 1. Depression. 2. Bipolar disorder. PAST SURGICAL HISTORY: She has had a and cholecystectomy. FAMILY HISTORY: Depression. SOCIAL HISTORY: She reports she abuse tobacco and also smokes meth. Also reports of occasional alcohol use. Currently, she is not working. MEDICATIONS: Currently being reconciled. REVIEW OF SYSTEMS: PATIENT'S NAME: JARVIS PAUL [facility] AGE: 31 Y [address] ROOM: [address] [address] LOCATION: [facility] ADMIT DATE: 12/13/2016 History & Physical DISCHARGE DATE: FAMILY PHYSICIAN: PHYSICIAN, UNKNOWN ATTENDING PHYSICIAN: Salome WALKER All systems have been reviewed and are negative except for what I mentioned in the HPI. PHYSICAL EXAMINATION: VITAL SIGNS: Afebrile. Blood pressure 128/88, respiratory rate 19, and saturating 92% on room air. GENERAL APPEARANCE: The patient is alert and awake, lying on bed. HEENT: Head; normocephalic and atraumatic. Eyes; extraocular muscles intact. No discharge. Nose; no nasal discharge. Ears; no ear discharge. Mouth; moist oral mucosa. CHEST: Clear to auscultation. HEART: Regular rate and rhythm. No murmurs, rubs, or gallops. ABDOMEN: Soft, nontender, and nondistended. Bowel sounds present. SKIN: Warm to touch. DRY WALL NAILER: The patient is alert and oriented x3. Motor and sensory grossly intact. No eye clonus. No hyperreflexia, and no spontaneous muscle clonus. LABORATORY DATA AND IMAGING STUDIES: EKG shows normal sinus rhythm. AK of 145, QRS of 85, and QTc of 428. Urine drug screen positive for amphetamine. White blood cells of 7, hemoglobin of 14.6, and platelets of 409,000. BUN of 8, creatinine of 0.7, sodium of 140, potassium 3.4, and CO2 of 21. Alcohol level undetected. Acetaminophen level undetected. Salicylate level undetected. Quantitative hCG, undetected. ASSESSMENT AND PLAN: 1. Suicide attempt with unknown quantity of Wellbutrin ingestion. Poison Control was contacted and the emergency department suggested to watch out for 24 hours. To treat with benzodiazepine if there is any agitation, tachycardia, or seizure. Also patient reports of taking Effexor to the emergency department personnel, however, denied taking Effexor to me. However, we will monitor SSRI syndrome and also to treat with benzodiazepine. To repeat EKG every 4 to 6 hours. To watch for QRS and QTc prolongation. 2. Depression with history of bipolar disorder. To monitor patient overnight for 24 hours and possible transfer to [facility] for appropriate care. Greater than 40 minutes were spent on patient's care. To contact [place] [employer] to EPC the patient during her stay. SALOME WALKER MD PATIENT'S NAME: JARVIS PAUL [facility] AGE: 31 Y [address] ROOM: [address] [address] LOCATION: [facility] ADMIT DATE: 12/13/2016 History & Physical DISCHARGE DATE: FAMILY PHYSICIAN: PHYSICIAN, UNKNOWN ATTENDING PHYSICIAN: Salome WALKER/modl /[id number] D: [id number] T: [id number] HISTORY & PHYSICAL
--- NOTE | ~2016-12-13 | DS ---
PATIENT'S NAME: JARVIS PAUL [facility] AGE: 31 Y [address] ROOM: [place] [address] LOCATION: [facility] ADMIT DATE: 12/13/2016 Discharge Summary DISCHARGE DATE: 12/14/2016 FAMILY PHYSICIAN: , Ree ATTENDING PHYSICIAN: Lisa Higginbotham DISCHARGE DIAGNOSES: 1. Intentional overdose. 2. Depression with history of bipolar disorder. 3. Polysubstance abuse. 4. Morbid obesity. DISCHARGE MEDICATIONS: None. HOSPITAL COURSE: Please review the admitting H and P dictated by Dr. Higginbotham for a more detailed outline of the patient's presentation. The patient presented to the ER after ingesting an unknown amount of Wellbutrin. This was intentional. She ultimately was admitted. Poison Control was contacted in the Emergency Department. A 24-hour observation was suggested. The patient did have a repeat EKG every 4 to 6 hours watching for QRS and QTc prolongation, which remained stable throughout her hospitalization. She had an uneventful stay at the hospital. Vital signs remained stable on the morning of 12/14/2016. It was felt that the patient was medically stable for transfer, which will ultimately not happen until the afternoon of 12/14/2016 to [facility]. The patient has had multiple intentional overdoses in the past, and has had multiple admissions to both [facility] and [facility]. DISCHARGE DISPOSITION: The patient will be transferred to [facility] for further consultation and management per our Psychiatric colleagues. DISCHARGE DIET AND ACTIVITY: She can have a diet and activity as tolerated. Ordered. ANABELLE ISAACS PA-C FOR MD LUKASZ ALEMAN/benigno /[id number] PATIENT'S NAME: JARVIS PAUL [facility] AGE: 31 Y [address] ROOM: [place] [address] LOCATION: [facility] ADMIT DATE: 12/13/2016 Discharge Summary DISCHARGE DATE: 12/14/2016 FAMILY PHYSICIAN: Physician, Unknown ATTENDING PHYSICIAN: Lisa Higginbotham CC: [facility] d: 12/15/16 0006 t: 12/19/16 1626, DISCHARGE SUMMARY
[~2016-12-13 14:22] MED LIST changes: -NEURONTIN600 MG PO; -RISPERDAL0.25 MG PO; -RISPERDAL0.5 MG PO; -WELLBUTRIN XL300 M2 PO
[2016-12-13 14:54] LABS: BASOPHIL % 0.6 %; EOSINOPHIL # 0.2 K/uL (0.0-0.5); EOSINOPHIL % 2.1 %; HEMATOCRIT 43.3 % (33.0-46.0); HEMOGLOBIN 14.6 g/dL (11.0-15.0); IMMATURE GRANULOCYTE % 0.1 %; LYMPHOCYTE # 1.6 K/uL (0.8-4.0); LYMPHOCYTE % 23.5 %; MCH 30.7 pg (27.0-34.0); MCHC 33.7 gm/dL (32.0-36.5); MCV 91.2 fl (83.0-98.0); MONOCYTE # 0.3 K/uL (0.0-1.0); MONOCYTE % 4.9 %; MPV 9.2 fl (9.4-12.4); NEUTROPHIL # (ANC) 4.8 K/uL (1.8-7.8); NEUTROPHIL % 68.8 %; NRBC % 0 /100WBC (0-0.00); PLATELET COUNT 409 K/uL (150-450); RBC 4.75 M/uL (3.50-5.50); RDW-CV 13.5 % (11.9-14.6)
[2016-12-13 15:15] LABS: ALBUMIN 3.8 gm/dL (3.5-5.0); ALK PHOS 77 IU/L (33-138); ALT 35 IU/L (12-78); ANION GAP 13.4 (10.0-19.0); AST 19 IU/L (10-40); BLOOD UREA NITROGEN 8 mg/dL (6-24); CALCIUM 8.3 mg/dL (8.5-10.5); CHLORIDE 109 mMol/L (96-110); CO2 21 mMol/L (22-32); CREATININE 0.7 mg/dL (0.5-1.1); POTASSIUM 3.4 mMol/L (3.7-5.1); SODIUM 140 mMol/L (135-145); TOTAL BILIRUBIN 0.3 mg/dL (0.0-1.5); TOTAL PROTEIN 7.9 g/dL (6.0-8.4)
[2016-12-13 15:37] LABS: BARBITURATE NEGATIVE (NEGATIVE); COCAINE NEGATIVE (NEGATIVE); OPIATES NEGATIVE (NEGATIVE)
[2016-12-13 15:38] LABS: AMPHETAMINE POSITIVE (NEGATIVE)
--- NOTE | 2016-12-14 04:07 | NUR ---
Pt. alert and oriented. VSS. RA. Here for overdose of wellbutrin and trazadone. CIWA score intially a 17 - valium given x1 dose. Denies sucidial thoughts this shift. Auditory hallucinations present - Thinks TV is talking to her at times. Sleeping most of shift. 1:1 sitter. Denies pain. Reports diarrhea. SBA. IV Potassium x1 dose. IV in R) hand - fluids running. EKG every 6 hours. On telemetry - no calls. Refuses pneumatics. Diet as tolerated. Possible transfer to [facility] today. Cooperative with cares.
[2016-12-14 06:07] LABS: ALBUMIN 2.8 gm/dL (3.5-5.0); ALK PHOS 57 IU/L (33-138); ALT 27 IU/L (12-78); BLOOD UREA NITROGEN 7 mg/dL (6-24); CHLORIDE 111 mMol/L (96-110); CO2 22 mMol/L (22-32); CREATININE 0.6 mg/dL (0.5-1.1); SODIUM 142 mMol/L (135-145); TOTAL BILIRUBIN 0.3 mg/dL (0.0-1.5); TOTAL PROTEIN 6.2 g/dL (6.0-8.4)
[2016-12-14 06:42] LABS: AST 21 IU/L (10-40)
[2016-12-14] MEDS ORDERED: WELLBUTRIN XL300 M2 PO (10:26)
[2016-12-14] MEDS ORDERED: NEURONTIN600 MG PO (10:26)
--- NOTE | 2016-12-14 15:03 | NUR ---
Following patient for Irena. Per Irena- [facility] Security states they need to be the ones to call [employer] when patient is ready for discharge so I am to call them when she is ready to go. 1440 Notified by the floor that david is ready for discharge to [facility]. Called placed to Melody at the [facility] 229 at 1445. Nurse to Nurse completed by patient's nurse Alejandra at 1500. Waiting to hear from Melody at [facility] that they have physician acceptance. Will notify security once I hear from Melody.
--- NOTE | 2016-12-14 15:31 | NUR ---
Was admitted for overdose.Has history of depression,suicide attempts,bi-polar,& substance abuse.Had EKG's that were all ok & with telemetry with no calls.Is up & about.Was kind of agitated & upset earlier saying she was trying to stop the drugs " stated its not easy".Was at [facility] not that long ago for the same thing.No c/o pain.Eating & drinking well.Is having some diarrhea.
--- NOTE | 2016-12-14 17:15 | NUR ---
Nurse to nurse report was given to Tigist CRAWFORD at [facility] by phone at 1500. Pt.was EPC'd so she was dismissed to go to [facility] by police officers & was taken to front door to car by w/c benigno.by HEALTH PROGRAM DIRECTOR & 2 police officers.Transfer papers were sent with officer.She was cooperative.
[2016-12-20] MEDS ORDERED: WELLBUTRIN XL150 M1 PO (09:49)
[2016-12-20] MEDS ORDERED: NICOTINE PATCH1 EAC1 TOP (09:50)
[2016-12-20] MEDS ORDERED: RISPERDAL0.25 MG PO (09:51)
[2016-12-20] MEDS ORDERED: RISPERDAL0.5 MG PO (09:53)
== END 2016-12-14 17:15 ==
LOC: GMED 14:22 → GMSU 16:41
PROVIDERS: Physician Assistant Medical; ADMIT Internal Medicine
DX: T43.292A Poisoning by other antidepressants, intentional self-harm, initial encounter (principal); F31.9 Bipolar disorder, unspecified; F19.10 Other psychoactive substance abuse, uncomplicated; E66.01 Morbid (severe) obesity due to excess calories; Z68.41 Body mass index [BMI] 40.0-44.9, adult; Z90.49 Acquired absence of other specified parts of digestive tract
CPT/HCPCS: G0378; G0480; J1650; J3480; J7042; J7050

== ENCOUNTER → 2016-12-13 | Outpatient (CLI) | payer SELFPAY ==
[~2016-12-13] MED LIST changes: +NEURONTIN600 MG PO; +RISPERDAL0.25 MG PO; +RISPERDAL0.5 MG PO; +WELLBUTRIN XL300 M2 PO; +ZOLOFT50 MG PO
== END | disposition disaster alternative care site (69) ==
LOC: GAMB 13:59
DX: F32.9 Major depressive disorder, single episode, unspecified (principal); R11.0 Nausea; R45.851 Suicidal ideations; Z79.899 Other long term (current) drug therapy; Z86.59 Personal history of other mental and behavioral disorders
CPT/HCPCS: A0425; A0427; J2405; J7030